=== PATIENT | male | born 1955 | race Caucasian/White ===

== ENCOUNTER 2018-02-02 15:57 | Inpatient (IN) | payer OTHER ==
[~2018-02-02] VITALS: Ht 185.4 cm; Wt 80.7 kg
[~2018-02-02 15:57] MED LIST: LEVAQUIN 500 M500 M2 PO; PREDNISONE 10 M10 MG PO; PROTONIX40 M4 PO; PULMICORT0.5 MG/22 INH; XOPENEX 0.63 MG/3 M1 INH
[2018-02-02 16:02] VITALS: BP 109/64
[2018-02-02] MEDS ORDERED: SINGULAIR 10 MG10 M1 PO (16:07)
[2018-02-02] MEDS ORDERED: DIGOXIN125 MCG PO (16:07)
[2018-02-02] MEDS ORDERED: STIOLTO RESPIMAT4 GM INH (16:07)
[2018-02-02 16:23] LABS: HEMATOCRIT 48.1 % (42.0-52.0); HEMOGLOBIN 16.1 gm/dL (14.0-18.0); MCH 32.2 pg (26.0-34.0); MCHC 33.4 g/dL (28.0-37.0); MCV 96.2 fL (80.0-100.0); NUCLEATED RBCS 0 /100WBC; PLATELET COUNT* 325 thou/uL (150-400); RDW-CV 14.2 % (10.5-14.5)
[2018-02-02 16:32] LABS: ANION GAP 9 mmol/L (7-16); APTT 26.2 Seconds (25.0-31.3); BUN 13 mg/dL (7-18); CALCIUM 8.6 mg/dL (8.5-10.1); CHLORIDE 102 mmol/L (98-107); CO2 33 mmol/L (21-32); CREATININE 1.1 mg/dL (0.6-1.3); GLUCOSE 131 mg/dL (70-99); INR 1.1; POTASSIUM 3.4 mmol/L (3.5-5.1); PROTIME 10.8 Seconds (9.20-11.50); SODIUM 144 mmol/L (136-145)
[2018-02-02 16:46] LABS: ALBUMIN 2.8 g/dL (3.4-5.0); ALKALINE PHOSPHATASE 90 U/L (46-116); LIPASE 87 U/L (73-393); NT-PRO BRAIN NAT PEPTIDE 633 pg/mL (<300); SGOT 28 U/L (15-37); SGPT 53 U/L (30-65); TOTAL BILIRUBIN 0.3 mg/dL (<0.1-1.0); TOTAL PROTEIN 6.9 g/dL (6.4-8.2); TROPONIN-I LEVEL <0.06 ng/mL (<0.06)
[2018-02-02 16:58] LABS: ABSOLUTE LYMPHOCYTES 2.8 thou/uL (0.8-5.3); ABSOLUTE MONOCYTES 2.1 thou/uL (0.0-1.2); ABSOLUTE NEUTROPHILS 18.2 thou/uL (1.6-8.1); PLATELET ESTIMATE ADEQUATE
[2018-02-02 16:59] LABS: MACROCYTES 1+; POLYCHROMASIA Occasional
[2018-02-02 18:40] VITALS: BP 122/71
[2018-02-02 18:45] VITALS: BP 118/75
[2018-02-02 21:29] LABS: HCO3 26.1 mmol/L (22.0-26.0); PO2 90.5 mmHg (75.0-100.0); pH 7.314 (7.340-7.450)
[2018-02-02 21:31] LABS: PCO2 52.5 mmHg (35.0-45.0)
[2018-02-03 00:31] VITALS: BP 103/58
[2018-02-03 04:08] VITALS: BP 115/72
[2018-02-03 04:59] LABS: BE 0.6 mmol/L (-2 to +3); HCO3 27.2 mmol/L (22.0-26.0); PO2 98.2 mmHg (75.0-100.0); pH 7.345 (7.340-7.450)
[2018-02-03 05:01] LABS: PCO2 50.9 mmHg (35.0-45.0)
[2018-02-03 07:55] VITALS: BP 100/64
--- NOTE | 2018-02-03 15:36 | EKG ---
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: [facility] : 1955 Requested By: Jared Knowles Order Number: [id number] MD: Vikram Burnham Measurements Intervals [place] Rate: 119 P: 61 CO: 153 QRS: 22 QRSD: 99 T: 76 QT: 314 QTc: 442 Interpretive Statements Sinus tachycardia Atrial premature complexes Compared to ECG 02/17/2017 20:10:21 Atrial premature complex(es) now present Myocardial infarct finding no longer present Electronically Signed On 02-03-2018 15:36:00 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
[2018-02-03 16:02] LABS: CALCIUM 8.5 mg/dL (8.5-10.1); MAGNESIUM 2.1 mg/dL (1.8-2.4); POTASSIUM 4.5 mmol/L (3.5-5.1)
[2018-02-03 16:06] VITALS: BP 125/77
[2018-02-03 20:10] VITALS: BP 98/65
[2018-02-04 00:13] VITALS: BP 107/68
[2018-02-04 03:56] VITALS: BP 124/77
[2018-02-04 04:09] LABS: MCH 31.5 pg (26.0-34.0); MCHC 32.4 g/dL (28.0-37.0); MCV 97.2 fL (80.0-100.0); MPV 8.2 fl. (7.2-11.1); RBC 4.21 mil/uL (4.50-6.00); RDW-CV 14.4 % (10.5-14.5); WBC 22.4 thou/uL (4.0-11.0)
[2018-02-04 04:17] LABS: CALCIUM 8.3 mg/dL (8.5-10.1); CREATININE 0.7 mg/dL (0.6-1.3); MAGNESIUM 2.3 mg/dL (1.8-2.4); POTASSIUM 5.2 mmol/L (3.5-5.1)
[2018-02-04 04:27] LABS: HEMOGLOBIN 13.3 gm/dL (14.0-18.0)
[2018-02-04 08:50] VITALS: BP 124/81
[2018-02-04 15:24] VITALS: BP 106/65
[2018-02-04 19:25] VITALS: BP 98/59
[2018-02-04 23:17] VITALS: BP 126/79
[2018-02-05 03:45] VITALS: BP 125/82
[2018-02-05 06:14] LABS: HEMOGLOBIN 13.6 gm/dL (14.0-18.0); MCH 31.7 pg (26.0-34.0); MCHC 32.3 g/dL (28.0-37.0); MCV 98.3 fL (80.0-100.0); RBC 4.28 mil/uL (4.50-6.00); RDW-CV 14.7 % (10.5-14.5); WBC 18.6 thou/uL (4.0-11.0)
[2018-02-05 06:30] LABS: ALBUMIN 2.7 g/dL (3.4-5.0); CALCIUM 8.4 mg/dL (8.5-10.1); CREATININE 0.7 mg/dL (0.6-1.3); MAGNESIUM 2.3 mg/dL (1.8-2.4); POTASSIUM 4.7 mmol/L (3.5-5.1); TOTAL BILIRUBIN 0.1 mg/dL (<0.1-1.0); TOTAL PROTEIN 5.9 g/dL (6.4-8.2)
--- NOTE | 2018-02-05 07:00 | CON ---
[address] [address] CONSULTATION Name: NAVDEEP MALIK Room: [address] IN [facility]#: [id number] Admission: 02/02/18 Attend Phys: Jono Hogan MD Discharge: Date of : 55 Report #: [id number] THIS REPORT FOR: //name// CC: Jono Maytings DATE OF SERVICE: 02/03/2018 CONSULT REQUESTED BY: Dr. Hogan. INDICATION FOR CONSULTATION: COPD exacerbation. HISTORY OF PRESENT ILLNESS: This is a 62-year-old gentleman. He sees Dr. Rangel in the office. He is an active smoker. He has COPD. 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 The patient is now here with increasing shortness of breath, went into respiratory distress yesterday, had O2 saturations recorded in the 60s on room air. He also does have a history of coughing. There has been some sputum production as well. He does not have chest pain. He does not have upper respiratory complaints. He does not have swelling of lower extremities. There is no pain in his calves. The patient did have an episode of feeling weird for a few seconds with narrow-complex tachycardia, which on initial glance on the monitor looks like a short run of atrial fibrillation noted on the monitor. The patient at this time is on 6 liters oxygen. He is saturating in the low 90s. He was on BiPAP overnight. Note that the patient at home is not on oxygen. The patient answered to the negative for 12 other questions for review of systems except as mentioned above. PAST MEDICAL HISTORY: COPD, I do not have previous PFTs available at this time. He also is on digoxin following a previous episode of arrhythmia during a previous hospitalization here. As noted above, the patient had an episode of what appears to me be a supraventricular tachycardia, likely atrial fibrillation. The patient also has a previously documented history of an episode of ventricular tachycardia. The patient's last available echocardiogram is from about a year ago and shows a left ventricular ejection fraction of 60-65%. The pulmonary artery systolic was around 30-35 at that time. SOCIAL HISTORY: He is an active smoker more than a pack a day, has been smoking for several decades. There is no known history of heavy alcohol use or illegal drug use. CURRENT MEDICATIONS: List in [employer] [facility] reviewed. HOME MEDICATIONS: List also in [employer] [facility] reviewed. PHYSICAL EXAMINATION: [place] [address] CONSULTATION Name: NAVDEEP MALIK Room: [address]#: [id number] Admission: 02/02/18 Attend Phys: Jono Hogan MD Discharge: Date of : 55 Report #: [id number] GENERAL: Alert, awake and oriented. VITAL SIGNS: Vitals in the records reviewed. THROAT: No erythema. NECK: Does not show raised JVP. CHEST: Extensive wheezes bilaterally. Breath sounds are bilaterally equal. HEART: Regular, no murmur. ABDOMEN: Soft and nontender. EXTREMITIES: Lower extremities show no edema, no calf tenderness. The patient's chest x-ray, which primarily shows chronic changes in [facility] reviewed. LABORATORY DATA: The patient's arterial blood gas as well as blood work from last night also in [facility] reviewed. Low potassium level was normal. Magnesium level also in [facility] reviewed. ASSESSMENT AND PLAN: 1. Acute hypoxemic/hypercarbic respiratory failure. Continue BiPAP while asleep, use BiPAP p.r.n. during the day. 2. Chronic obstructive pulmonary disease exacerbation. He has active bronchospasm and remains severely bronchospastic at this time. The patient already is on Solu-Medrol as well as nebulized bronchodilators. I will continue and make no change at this time. 3. Acute bronchitis. He is on antibiotics. I agree will continue as currently ordered. 4. Narrow-complex tachycardia. See discussion above. Note that the patient has been on digoxin previously. I feel that the first thing to do right now is to replace his potassium and then a repeat magnesium and potassium level and follow those closely. , further intervention including cardiology consult could be considered if these arrhythmias continued to occur despite replacements of his electrolytes. I will go ahead and give him potassium in order to avoid gastrointestinal distress as a result and we will give him Pepcid as well. 5. Deep vein thrombosis prophylaxis. I will order Lovenox. Thanks for this consultation. <ELECTRONICALLY SIGNED> By: Negra Hull MD 02/05/18 0700 1228 [id number] Zimmer MD /nt
[2018-02-05 11:41] VITALS: BP 125/84
[2018-02-05 16:00] VITALS: BP 104/66
[2018-02-05 19:20] VITALS: BP 95/63
[2018-02-06 00:42] VITALS: BP 117/80
[2018-02-06 04:29] LABS: HEMATOCRIT 41.7 % (42.0-52.0); HEMOGLOBIN 13.6 gm/dL (14.0-18.0); MCH 31.5 pg (26.0-34.0); MCHC 32.5 g/dL (28.0-37.0); MPV 7.6 fl. (7.2-11.1); RBC 4.3 mil/uL (4.50-6.00); RDW-CV 14.4 % (10.5-14.5); WBC 15.1 thou/uL (4.0-11.0)
[2018-02-06 05:33] LABS: CALCIUM 8.3 mg/dL (8.5-10.1); CREATININE 0.8 mg/dL (0.6-1.3); MAGNESIUM 2.2 mg/dL (1.8-2.4); POTASSIUM 5.3 mmol/L (3.5-5.1)
[2018-02-06 09:08] VITALS: BP 123/66
[2018-02-06 13:08] VITALS: BP 122/67
[2018-02-06 16:50] VITALS: BP 108/55
[2018-02-06 19:28] VITALS: BP 105/61
[2018-02-06 23:29] VITALS: BP 102/79
[2018-02-07 03:32] VITALS: BP 111/79
[2018-02-07 06:10] LABS: HEMATOCRIT 43.4 % (42.0-52.0); MCH 31.4 pg (26.0-34.0); MCHC 32.1 g/dL (28.0-37.0); MCV 97.7 fL (80.0-100.0); MPV 7.9 fl. (7.2-11.1); RBC 4.44 mil/uL (4.50-6.00); RDW-CV 14.6 % (10.5-14.5); WBC 12.3 thou/uL (4.0-11.0)
[2018-02-07 06:27] LABS: CALCIUM 8.3 mg/dL (8.5-10.1); CREATININE 0.8 mg/dL (0.6-1.3); MAGNESIUM 2.1 mg/dL (1.8-2.4); POTASSIUM 4.1 mmol/L (3.5-5.1)
[2018-02-07 09:30] VITALS: BP 129/85
[2018-02-07] MEDS ORDERED: PREDNISONE 20 M20 MG PO (11:26)
[2018-02-07] MEDS ORDERED: AZITHROMYCIN 2250 MG PO (11:26)
[2018-02-07] MEDS ORDERED: MUCINEX600 MG PO (11:26)
[2018-02-07] MEDS ORDERED: CEFDINIR300 MG PO (11:26)
[2018-02-07 12:02] VITALS: BP 129/85
[2018-02-07 12:05] VITALS: BP 129/85
[2018-02-07 12:25] VITALS: BP 129/85
== END 2018-02-07 12:27 | disposition home or self-care (01) | DRG 871 ==
LOC: M.ERS 15:57 → M.3W 17:42 → M.TBA-ER 17:42 → M.3W 18:35
PROVIDERS: Emergency Medicine Emergency Medical Services; Family Medicine; Internal Medicine Critical Care Medicine; ADMIT Internal Medicine
PROC: 5A09357 Assistance with Respiratory Ventilation, Less than 24 Consecutive Hours, Continuous Positive Airway Pressure (ICD-10-PCS; principal; 2018-02-02)
PROC: 5A09357 Assistance with Respiratory Ventilation, Less than 24 Consecutive Hours, Continuous Positive Airway Pressure (ICD-10-PCS; 2018-02-03)
PROC: 5A09357 Assistance with Respiratory Ventilation, Less than 24 Consecutive Hours, Continuous Positive Airway Pressure (ICD-10-PCS; 2018-02-04)
PROC: 5A09357 Assistance with Respiratory Ventilation, Less than 24 Consecutive Hours, Continuous Positive Airway Pressure (ICD-10-PCS; 2018-02-05)
DX: A41.9 Sepsis, unspecified organism (principal); J18.1 Lobar pneumonia, unspecified organism; J96.21 Acute and chronic respiratory failure with hypoxia; J96.22 Acute and chronic respiratory failure with hypercapnia; J44.1 Chronic obstructive pulmonary disease with (acute) exacerbation; J44.0 Chronic obstructive pulmonary disease with (acute) lower respiratory infection; E44.0 Moderate protein-calorie malnutrition; J20.9 Acute bronchitis, unspecified; F17.210 Nicotine dependence, cigarettes, uncomplicated; Z68.23 Body mass index [BMI] 23.0-23.9, adult; Z79.899 Other long term (current) drug therapy; Z82.49 Family history of ischemic heart disease and other diseases of the circulatory system